=== PATIENT | male | born 1985 | race Caucasian/White ===

== ENCOUNTER 2019-05-22 09:49 | Emergency (ER) | payer SELFPAY ==
[~2019-05-22] VITALS: Ht 167.6 cm; Wt 117.9 kg
[2019-05-22 09:49] VITALS: BP_SYST 140
[2019-05-22] MEDS ORDERED: LORazepam 2 MG/ML VIAL IVP ONE (10:15)
[2019-05-22 10:51] VITALS: BP_SYST 138
== END 2019-05-22 10:51 | disposition home or self-care (01) ==
LOC: SED 09:49
DX: R07.9 Chest pain, unspecified (principal); F43.9 Reaction to severe stress, unspecified
CPT/HCPCS: 96374; 99283; J2060